=== PATIENT | female | born 1950 | race Caucasian/White ===

== ENCOUNTER 2021-10-31 01:23 | Inpatient (IN) | payer MEDICARE ==
[~2021-10-31] VITALS: Ht 160 cm; Wt 107.8 kg
[2021-10-31 01:56] LABS: BASOPHILS ABSOLUTE AUTO 0.07 K/mm3 (0.00-0.23); BASOPHILS PERCENT AUTO 1 % (0-2); EOSINOPHILS ABSOLUTE AUTO 0.15 K/mm3 (0.00-0.68); EOSINOPHILS PERCENT AUTO 1 % (0-6); Hematocrit 39.7 % (33.0-51.0); Hemoglobin 13.4 g/dL (11.5-16.0); IMMATURE GRAN ABSOLUTE AUTO 0.06 K/mm3 (0.00-0.10); IMMATURE GRAN PERCENT AUTO 1 % (0-1); LYMPHOCYTES ABSOLUTE AUTO 2.09 K/mm3 (0.84-5.20); LYMPHOCYTES PERCENT AUTO 17 % (21-46); MONOCYTES ABSOLUTE AUTO 0.59 K/mm3 (0.16-1.47); MONOCYTES PERCENT AUTO 5 % (4-13); Mean Corpuscular HGB 28.9 pg (26.0-34.0); Mean Corpuscular HGB Conc 33.8 g/dL (31.5-36.5); Mean Corpuscular Volume 86 fL (80-100); NEUTROPHILS ABSOLUTE AUTO 9.25 K/mm3 (1.96-9.15); NEUTROPHILS PERCENT AUTO 76 % (41-73); Platelet Count 278 K/mm3 (150-400); RDW Coefficient Variation 12.1 % (11.7-14.2); RDW Standard Deviation 37.5 fL (35.1-46.3); Red Blood Cell Count 4.63 M/mm3 (3.80-5.20); White Blood Cell Count 12.21 K/mm3 (4.00-11.30)
[2021-10-31 02:05] LABS: Alanine Aminotransfer (ALT/SGP 20 U/L (12-78); Albumin, Blood 3.4 g/dL (3.4-5.0); Albumin/Globulin Ratio 0.7 (0.8-1.8); Alk Phos 166 U/L (50-136); Anion Gap 9 mmol/L (6-16); Aspartate Aminotrans (AST/SGOT 19 U/L (12-37); Bilirubin, Total 0.2 mg/dL (0.1-1.0); Blood Urea Nitrogen 34 mg/dL (8-24); Bun/Creatinine Ratio 19.1 (12.0-20.0); CHOL/HDL RATIO 5.8; CO2, Blood 24 mmol/L (21-32); Calcium, Blood 9.4 mg/dL (8.5-10.1); Chloride, Blood 106 mmol/L (98-108); Cholesterol 289 mg/dL (50-200); Creatinine, Blood 1.78 mg/dL (0.40-1.00); Globulin, Blood 4.6 g/dL (2.2-4.0); Glomerular Filtration Rate 30 (60-); Glucose, Blood 166 mg/dL (70-99); HDL Cholesterol 50 mg/dL (>39); LDL/HDL RATIO 3.8; Low Density Lipoprotein Chol 189 mg/dL (0-110); Magnesium, Blood 2.1 mg/dL (1.6-2.4); Potassium, Blood 3.8 mmol/L (3.5-5.5); Sodium, Blood 139 mmol/L (136-145); Triglycerides 252 mg/dL (30-160); Very Low Density Lipoprot Chol 50 mg/dL (6-32)
[2021-10-31 03:01] LABS: International Normalized Ratio 1.03; Prothrombin Time Results 10.8 Sec (9.7-11.5)
[2021-10-31] MEDS ORDERED: OMEP20ER PO (04:28)
[2021-10-31] MEDS ORDERED: METOPROLOL TART25 MG PO (04:28)
[2021-10-31] MEDS ORDERED: FUROSEMIDE20 MG PO (04:29)
[2021-10-31] MEDS ORDERED: TRAM50 PO (04:32)
[2021-10-31 05:20] LABS: BASOPHILS ABSOLUTE AUTO 0.06 K/mm3 (0.00-0.23); BASOPHILS PERCENT AUTO 0 % (0-2); EOSINOPHILS ABSOLUTE AUTO 0.02 K/mm3 (0.00-0.68); EOSINOPHILS PERCENT AUTO 0 % (0-6); Hematocrit 35.1 % (33.0-51.0); Hemoglobin 11.9 g/dL (11.5-16.0); IMMATURE GRAN ABSOLUTE AUTO 0.08 K/mm3 (0.00-0.10); IMMATURE GRAN PERCENT AUTO 1 % (0-1); LYMPHOCYTES ABSOLUTE AUTO 1.06 K/mm3 (0.84-5.20); LYMPHOCYTES PERCENT AUTO 7 % (21-46); MONOCYTES ABSOLUTE AUTO 0.47 K/mm3 (0.16-1.47); MONOCYTES PERCENT AUTO 3 % (4-13); Mean Corpuscular HGB 28.8 pg (26.0-34.0); Mean Corpuscular HGB Conc 33.9 g/dL (31.5-36.5); Mean Corpuscular Volume 85 fL (80-100); Mean Platelet Volume 10.1 fL (9.1-12.4); NEUTROPHILS ABSOLUTE AUTO 12.74 K/mm3 (1.96-9.15); NEUTROPHILS PERCENT AUTO 88 % (41-73); Platelet Count 266 K/mm3 (150-400); RDW Coefficient Variation 12.2 % (11.7-14.2); RDW Standard Deviation 37.6 fL (35.1-46.3); Red Blood Cell Count 4.13 M/mm3 (3.80-5.20); White Blood Cell Count 14.43 K/mm3 (4.00-11.30)
[2021-10-31 05:38] LABS: Bun/Creatinine Ratio 19.5 (12.0-20.0); Calcium, Blood 8.9 mg/dL (8.5-10.1); Creatinine, Blood 1.69 mg/dL (0.40-1.00)
--- NOTE | 2021-10-31 06:22 | NUR ---
PATIENT TO ROOM FROM [facility], ALERT AND ORIENTED X4. 02 SATS >95% ON RA, DENIES SOB. HR SR AT 80s-90s, BP HYPERTENSIVE, MEDICATED PER EMAR. CP 5/10, MEDICATED PER EMAR. EKG DONE THIS AM. RIGHT RADIAL SITE WNL, TR BAND IN PLACE WITH ARM BOARD. NO HEMATOMA, SENSATION INTACT. CONTINENT OF BOWEL AND BLADDER. MINIMAL ASSISTANCE WITH REPOSITIONING. CALL LIGHT IN REACH, SEE ASSESSMENT FOR MORE INFORMATION. DAUGHTER CURRENTLY AT BEDSIDE AND TAKING MONEY/BELONGING HOME WITH HER.
--- NOTE | 2021-10-31 07:18 | NUR ---
PATIENT BECAME BRADYCARDIC AND THEN ASYSTOLE, LESS THAN A MINUTE OF CHEST COMPRESSIONS DONE AND PATIENT PATIENT BECAME ST. CALLED DAUGHTER CHIDI AND NOTIFIED HER OF EVENT, SHE WILL BE COMING BACK TO THE HOSPITAL.
[2021-10-31 08:09] LABS: Calcium, Blood 8.5 mg/dL (8.5-10.1); Creatinine, Blood 1.57 mg/dL (0.40-1.00); Magnesium, Blood 2.2 mg/dL (1.6-2.4); Potassium, Blood 4.3 mmol/L (3.5-5.5)
--- NOTE | 2021-10-31 08:27 | NUR ---
0715: SBAR from Cristina CEBALLOS. Immediately following bedside report in which pt reportd 3/10 chest pain w/ no AMS and VSS, pt had episode of bradycardia then asystole with AMS and respiratory arrest. Less than 1 min chest compressions, code blue called, pads placed; pt had spontaneous ROSC to sinus tach. EKG performed. Dr. Moses from ED and Dr. Lam at bedside following event. Pt VSS, CP 5/10. Dr. Brown notified of event by telephone. 0800: Called Dr. Brown to notify of status and stated concern that event may reoccur; requested consideration for pacemaker. No change to plan of care at this time other than to administer 25mcg of fentanyl when due and give tylenol. 0815: Discussed plan with Dr. Lam and recommended she consult with Dr. Brown regarding plan of care. Pt remains in room, AAOx4, w/ CP 5/10 and unchanged with stable VSS. Held lopressor, lovenox, and humalog; Dr. Lam aware.
--- NOTE | 2021-10-31 08:45 | NUR ---
0840: PT REPORTS INCREASE IN CHEST PAIN. DR. GONZALES AT BEDSIDE FOR CP 10/23, L CHEST INFERIOR TO RIBS, NONRADIATING. NO INCREASE IN SOB OR N/V OR VS CHANGES.
--- NOTE | 2021-10-31 10:33 | NUR ---
PT RESTING IN ROOM. R RADIAL PULSE 2+ WITH NO S/S OF BLEEDING OR HEMATOMA S/P REMOVAL OF TR BAND. TRANSPARENT DRESSING APPLIED. TEMPERATURE CONTINUES TO NORMALIZE. NO SIGNIFICANT ECTOPY NOTED. PATIENT STATES CHEST PAIN HAS DECREASED TO 3/10 S/P GI COCKTAIL. STATES IMPROVEMENT IN OVERALL BODY ACHES. BP CUFF IS ON L WRIST; PLACING AT PHLEBOSTATIC AXIS LEVEL TO FACILITATE ACCURATE BP MEASUREMENTS.
--- NOTE | 2021-10-31 12:09 | NUR ---
1200: DR DAVEY AT BEDSIDE TO ASSESS PATIENT. VSS, PAIN 3/10 CP AND UNCHANGED PER PT. DR. DAVEY RECOMMENDS OOBTC AND AMBULATION WITHIN ROOM. HE STATES HE WILL REVIEW ACTIVE ORDERS AND DISCONTINUE TX NEEDED. PT OOBTC FOR LUNCH, TOLERATED WELL WITH MINOR LIGHTHEADEDNESS THAT RESOLVED. VSS. CALL LIGHT IN REACH. LINENS CHANGED.
--- NOTE | 2021-10-31 14:56 | NUR ---
PT TOLERATED BEING IN CARDIAC CHAIR FOR UP TO 90 MIN BEFORE REQUESTING TO RETURN TO HOSPITAL BED. SHE HAD ONE BOUT OF NAUSEA AND VOMITING WHILE IN CHAIR, AFTER ATTEMPTING TO EAT SOME LUNCH; NAUSEA IMPROVED AND SHE DECLINED PHARMACOLOGICAL INTERVENTION. VSS, NO INCREASE IN CHEST PAIN. PT TOLERATED JELLO AT 1430, WILL ADVANCE DIET SLOWLY TOLERATED.
--- NOTE | 2021-10-31 16:11 | NUR ---
SHIFT SUMMARY NEURO: PT REC'D TYLENOL X 2 FOR PAIN INCLUDING BODY ACHES, HEADACHE, AND DULL CHEST PAIN. ONE EPISODE OF AMS THIS AM WITH CODE BLUE EVENT. RESP: CONTINUES ON RA. CARDIAC: EPISODE OF BRADYCARDIA & ASYSTOLE THIS AM REQUIRING <1MIN CPR W/ SPONT ROSC. ATROPINE AND EPI AT BEDSIDE, PACING PADS REMAIN IN PLACE. EKGS IN CHART. SR W/ OCCASIONAL UNIFOCAL PVCS. ADDED LISINOPRIL, HAS NOT REQ'D ADDITIONAL BP INTERVENTION. HELD METOPROLOL DUE TO BRADYCARDIA. MD ATTRIBUTED EVENT POSSIBLY TO VAGAL RESPONSE. CN ATTEMPTED PLACEMENT OF MIDLINE WITHOUT SUCCESS. GI: ONE EPISODE OF EMESIS AFTER EATING A BITE OF NOODLES; TOLERATED JELLO AND ORAL FLUIDS. : URGENT INCONTINENCE WHEN VOMITING OR COUGHING. UP TO COMMODE. MK: OOBTC X 90 MIN, UP TO COMMODE X 2. INTEG: DECLINED FULL BED BATH. REMOVED TR BAND AT 0800 , DRESSING PLACED, R ARM ALERT X 24 HRS S/P TR BAND. PSYCH: MULTIPLE FAMILY MEMBERS PRESENT DURING THE DAY, VERY PLEASANT.
--- NOTE | 2021-10-31 20:54 | NUR ---
ASSUMED CARE AT 1900 PATIENT IS ALERT AND ORIENTED X4. 02 SATS 100% ON RA, DENIES SOB. HR SR 70s, BP STABLE. REPORTS 3/10 CP, STATES IT IS IMRPOVING. UP TO TOILET WITH 1 PERSON ASSIST. REPOSITIONS SELF IN BED. CALL LIGHT IN REACH, SEE SHIFT ASSESSMENT FOR MORE INFORMATION.
--- NOTE | 2021-11-01 06:22 | NUR ---
SHIFT SUMMARY PATIENT REMAINS ALERT AND ORIENTED X4. 02 SATS >95% ON RA, DENIES SOB. HR SR 80s. BP STABLE. DENIES CP/PRESSURE. DOES STATE SHE IS HAVING PAIN ON THE LEFT SIDE OF HER FACE DOWN HER NECK "LIKE WHEN SHES HAD AN EAR INFECTION", MEDICATED PER EMAR. UP TO TOILET, NO BM THIS SHIFT. DENIES DESMOND N/V OR ABDOMINAL PAIN.
[2021-11-01 09:02] LABS: Hematocrit 41.8 % (33.0-51.0); Mean Corpuscular HGB 28.8 pg (26.0-34.0); Mean Corpuscular HGB Conc 31.1 g/dL (31.5-36.5); Mean Platelet Volume 10.4 fL (9.1-12.4); Platelet Count 271 K/mm3 (150-400); RDW Coefficient Variation 13.1 % (11.7-14.2); Red Blood Cell Count 4.51 M/mm3 (3.80-5.20); White Blood Cell Count 11.31 K/mm3 (4.00-11.30)
[2021-11-01 09:11] LABS: Mean Corpuscular Volume 93 fL (80-100)
[2021-11-01 09:13] LABS: Albumin, Blood 3.1 g/dL (3.4-5.0); Anion Gap 9 mmol/L (6-16); Blood Urea Nitrogen 29 mg/dL (8-24); Bun/Creatinine Ratio 16.8 (12.0-20.0); CO2, Blood 21 mmol/L (21-32); Calcium, Blood 8.8 mg/dL (8.5-10.1); Chloride, Blood 110 mmol/L (98-108); Creatinine, Blood 1.73 mg/dL (0.40-1.00); Glomerular Filtration Rate 31 (60-); Glucose, Blood 164 mg/dL (70-99); Phosphorus, Blood 2.6 mg/dL (2.5-4.9); Potassium, Blood 4.1 mmol/L (3.5-5.5); Sodium, Blood 140 mmol/L (136-145)
--- NOTE | 2021-11-01 09:51 | NUR ---
0700: SBAR FROM DARIANA CEBALLOS. PT VSS, HYPERTENSIVE, SITTING IN CHAIR, STATES PRIMARY CONCERN IS L JAW PAIN AND SHE WOULD LIKE PROVIDER TO REVIEW IT TODAY. PAIN OCCURS WITH SWALLOW/PALPATION. PT AMBULATED WITHIN ROOM X 2 MIN W/ GOOD TOLERANCE. PT ASSISTED TO TOILET X 2. VSS. DR. ELIZALDE AT BEDSIDE AT 0950. NOTIFIED HER OF PT PAIN TO L JAW.
--- NOTE | 2021-11-01 12:10 | NUR ---
DR. DAVEY AT BEDSIDE. LEFT MESSAGE FOR DR. ELIZALDE TO PROVIDE UPDATE ON PLAN OF CARE.
--- NOTE | 2021-11-01 12:23 | NUR ---
1223: NOTIFIED DR. DAVEY BY TELEPHONE OF POTENTIAL EKG CHANGES FOR REVIEW.
--- NOTE | 2021-11-01 14:10 | NUR ---
DR. ELIZALDE APPROVED DISCONTINUE OF AC/HS BGL CHECKS WITH ASSOCIATED SLIDING SCALE
--- NOTE | 2021-11-01 16:05 | NUR ---
1500: LUE IV no longer patent. Assessing for potential IV site. Unsuccessful x2 attempts to RUE. KYLE Gil at bedside at 1530 to assess for midline catheter. 1530: Pt states she feels like her "tummy is swelling." BS active x 4 quadrants. Abdomen soft, nondistended, no guarding or rebound tenderness; minimal generalized tenderness to deep palpation. Further evaluation and pt states she feels like the "pressure is moving up [into upper abdomen]...like when I went in [to the ED during cardiac event]." Pressure rated at 4/10. EKG performed, VSS. 1600: Dr. Sellers notified of EKG. Possible changes to EKG include increased T-wave abnormality and QTc prolongation per printout. Dr. Brown notified and he compared new EKG to one this AM and states it looks improved compared to this AM. He recommended acetaminophen for discomfort.
--- NOTE | 2021-11-01 16:40 | NUR ---
SHIFT SUMMARY NEURO: NO ACUTE ISSUES. CHRONIC JOINT/BACK PAIN CONTROLLED BY SITTING IN CHAIR MOST OF DAY AND AMBULATION, BED INCREASES HER BACK PAIN. CARDIAC: SR W/ OCCASIONAL UNIFOCAL PAC'S WITH QTC PROLONGATION AND T-WAVE ABNORMALITY WITH ST ELEVATION IN V2/V3, DR. DAVEY AWARE. RESTARTING LOPRESSOR AT 1800. IVF 150ML/HR X 1L FOR RENAL FUNCTION. PLAN FOR MONITORING OF ANY EPISODES OF BRADYCARDIA. VERBAL APPROVAL REC'D FROM DR. DOVER TO HOLD BLOOD GLUCOSE CHECKS AND HUMALOG UNTIL FURTHER NOTICE. EKG CHANGES THIS AM WERE DISCUSSED WITH DR. DAVEY WHO STATES HE WANTS OBSERVATION OF PATIENT OVERNIGHT. MIDLINE CATHETER PLACED DUE TO INFILTRATION OF IV TO LUE AND DIFFICULT ACCESS. RESP: NO CHANGES. GI: POSITIVE FOR STREP THROAT TODAY; ABX STARTED. TOLERATED LUNCH. NOW WITH ABDOMINAL DISCOMFORT 4 HRS LATER, PT STATES SHE WILL HAVE CLEAR FLUIDS THIS EVENING. NO N/V/D. LAST BM 10/30. : ASSISTED TO TOILED X 4 DURING SHIFT FOR URINATION. RENAL FUNCTION PANEL SHOWED SOME DETERIORATION THIS AM AND TO BE RE-CHECKED TOMORROW. INTEG: NO CHANGES. DRESSING TO R RADIAL S/P TR BAND ON 10/31.
--- NOTE | 2021-11-01 19:10 | NUR ---
ASSUMED CARE OF PT AT THIS TIME. PT IS ALERT AND ORIENTED AND UP TO TOILET WITH [employer] ELECTRICAL DESIGNER ASSISTANCE FOR LINE MANAGEMENT, GAIT STEADY, PT DENIES FURTHER NEEDS AT THIS TIME. WILL MONITOR.
--- NOTE | 2021-11-02 05:19 | NUR ---
PT REMAINS ALERT AND ORIENTED THROUGHOUT NOC, REPORTS DIFFICULTY SLEEPING DUE TO DISCOMFORT IN A BED NOT HER OWN. SHE HAS STATED THAT SHE IS LOOKING FORWARD TO DISCHARGE TO HOME TODAY. RIGHT WRIST MOVEMENT RESTRICTIONS HAVE BEEN DISCUSSED WITH EACH TIME PT WAS UP OOB TO TOILET THIS SHIFT, MOVEMENT RESTRICTIONS CONTINUE TO NEED TO BE REINFORCED, DID DISCUSS WITH PT THAT RISKS OF NONCOMPLIANCE WITH MOVEMENT RESTRICTIONS INCLUDE BLEEDING FROM SITE, LARGE HEMATOMA FORMATION, POSSIBLE LOSS OF CIRCULATION TO ARM/HAND DUE TO BLEEDING WITHIN ARM. SHE CONTINUES IN SINUS RHYTHM, PRESSURES MAINTAINING STABLE THROUGHOUT SHIFT, DENIES CP/PRESSURE THROUGHOUT NOC. SATS REMAIN HIGH 90S ON ROOM AIR, PT DENIES SOB/DYSPNEA. BOWEL MOVEMENT X 2 THIS SHIFT. CONTINUES SBA TO TOILET FOR LINE MANAGEMENT AND SAFETY. WILL CONT TO MONITOR AND REPORT OFF TO NEXT SHIFT.
--- NOTE | 2021-11-02 08:39 | NUR ---
AM NOTE... ASSUMED CARE OF PT AT 0700 THE PT IS A&Ox4 THE PT WAS ADMITTED FOR A STEMI AND IS S/P ANGIO W/ STENT TO THE LAD. THE PT DENIES ANY CHEST PAIN/PRESSURE N/V OR SOB. THE PT IS IN SR IN THE 80'S BP IS STABLE. NO EDEMA NOTED ON ASSESSMENT. THE PT IS ON RA WITH O2 SATS >90% L/S CLEAR T/O. THE PT IS C/O OF UPPER ABD/GASTRIC PAIN SHE STATED THIS IMPROVED WHEN SHE WAS GIVEN A GI COCKTAIL YESTERDAY. THE PT IS IND TO SBA IN THE ROOM AND UP IN THE CHAIR FOR THIS ASSESSMENT. VS STABLE AT THIS TIME THE PT'S RIGHT WRIST SITE IS STABLE. WILL CONTINUE TO MONITOR.
[2021-11-02 11:43] LABS: Bun/Creatinine Ratio 14.7 (12.0-20.0); Calcium, Blood 8.7 mg/dL (8.5-10.1); Creatinine, Blood 1.7 mg/dL (0.40-1.00); Potassium, Blood 4.4 mmol/L (3.5-5.5)
[2021-11-02] MEDS ORDERED: ASPI81CH PO (13:04)
[2021-11-02] MEDS ORDERED: CLOP75 PO (13:05)
[2021-11-02] MEDS ORDERED: Prinivil10 MG PO (13:06)
[2021-11-02] MEDS ORDERED: PENVK500 PO (13:09)
[2021-11-02] MEDS ORDERED: VISBIOME 112.51 EACH PO (13:10)
[2021-11-02] MEDS ORDERED: NITR.4SL SL (13:11)
[2021-11-02] MEDS ORDERED: METO25ER PO (13:12)
[2021-11-02] MEDS ORDERED: PANT40 PO (13:13)
[2021-11-02] MEDS ORDERED: JARDIANCE25 MG PO (13:15)
[2021-11-02] MEDS ORDERED: LISI20 PO (13:15)
--- NOTE | 2021-11-02 13:41 | NUR ---
PT D/C HOME.... PT IS TO D/C HOME WITH CARDIOLOGY FOLLOW UP WITH IN 1 WEEK, THE PT IS ALSO TO D/C HOME WITH A ZIO PATCH IN PLACE. THE PT'S D/C EDUCATION AND NEW MEDICATION INFORMATION WAS PROVIDED TO THE PT WRITTEN AND VERBALLY, BOT THE PT AND HER DAUGHTER WHO WAS PRESENT VERBALIZED THEIR UNDERSTANDING. THE PT'S IV AND POWERGLIDE WERE REMOVED WNL. ALL OF PT'S BELONGINGS WERE PACKED AND SENT WITH THE PT. THE PT'S NEW MEDICATIONS WERE FAXED TO THE PT'S PHARMACY OF CHOICE.
--- NOTE | 2021-11-03 13:29 | NUR ---
Spoke with Dr Majano about the medication Jardiance for this patient Shauna Sanders. She called today 11/03/21 one day post her being discharged from [facility] on 11/02/21. She stated the medication was to expensive to get. Dr Majano stated to RN, Xavi that she will be ok to not get the medication till she follows up with the primary doctor. The medication will not affect her cardiac condition acutely if she does not get it for a short period of time. Yousuf Couch RN spoke with daughter Jaqueline and informed her of this information and the reminder that her mother Shauna is following up with the [facility] in one week and that she should discuss this medication with them to find out if there is other options of medications for Shauna to take.
== END 2021-11-02 14:20 | disposition home or self-care (01) | DRG 247 ==
LOC: ER 01:23 → ICUW 02:00 → ER 02:00 → ICUW 02:50
PROVIDERS: Family Medicine; Internal Medicine; Student in an Organized Health Care Education/Training Program; ADMIT Internal Medicine Interventional Cardiology
PROC: 027034Z Dilation of Coronary Artery, One Artery with Drug-eluting Intraluminal Device, Percutaneous Approach (ICD-10-PCS; principal; 2021-10-31)
PROC: 02C03ZZ Extirpation of Matter from Coronary Artery, One Artery, Percutaneous Approach (ICD-10-PCS; 2021-10-31)
PROC: B2111ZZ Fluoroscopy of Multiple Coronary Arteries using Low Osmolar Contrast (ICD-10-PCS; 2021-10-31)
PROC: 4A023N7 Measurement of Cardiac Sampling and Pressure, Left Heart, Percutaneous Approach (ICD-10-PCS; 2021-10-31)
DX: I21.02 ST elevation (STEMI) myocardial infarction involving left anterior descending coronary artery (principal); I12.9 Hypertensive chronic kidney disease with stage 1 through stage 4 chronic kidney disease, or unspecified chronic kidney disease; N18.30 Chronic kidney disease, stage 3 unspecified; J02.0 Streptococcal pharyngitis; I25.10 Atherosclerotic heart disease of native coronary artery without angina pectoris; D72.829 Elevated white blood cell count, unspecified; E11.65 Type 2 diabetes mellitus with hyperglycemia; I44.1 Atrioventricular block, second degree; E11.22 Type 2 diabetes mellitus with diabetic chronic kidney disease; E78.5 Hyperlipidemia, unspecified; K21.9 Gastro-esophageal reflux disease without esophagitis; B95.0 Streptococcus, group A, as the cause of diseases classified elsewhere; D63.1 Anemia in chronic kidney disease; Z87.891 Personal history of nicotine dependence; Z85.3 Personal history of malignant neoplasm of breast; Z92.3 Personal history of irradiation; Z92.21 Personal history of antineoplastic chemotherapy; Z90.10 Acquired absence of unspecified breast and nipple; Z88.6 Allergy status to analgesic agent; Z88.8 Allergy status to other drugs, medicaments and biological substances; Z79.899 Other long term (current) drug therapy
CPT/HCPCS: 36415; 37197; 71045; 76937; 80048; 80053; 80061; 80069; 82947; 83036; 83735; 84100; 84484; 85025; 85027; 85347; 85610; 85730; 86850; 86900; 86901; 87430; 92950; 93005; 93010; 93246; 93306; 93458; 96374-59; 96375-59; 99152; 99153; 99285-25; A9270; C1725; C1751; C1757; C1769; C1874; C1887; C1894; C9113; C9606; J0153; J0360; J0461; J1644; J1650; J2250; J2270; J2405; J3010; J7030; J7040; Q9967

== ENCOUNTER 2021-11-06 10:38 | Inpatient (IN) | payer MEDICARE ==
[~2021-11-06] VITALS: Ht 160 cm; Wt 105.5 kg
[~2021-11-06 10:38] MED LIST: ASPI81CH PO; CLOP75 PO; FUROSEMIDE20 MG PO; JARDIANCE25 MG PO; LISI20 PO; METO25ER PO; METOPROLOL TART25 MG PO; NITR.4SL SL; OMEP20ER PO; PANT40 PO; PENVK500 PO; Prinivil10 MG PO; TRAM50 PO; VISBIOME 112.51 EACH PO
[2021-11-06 11:46] LABS: BASOPHILS ABSOLUTE AUTO 0.07 K/mm3 (0.00-0.23); BASOPHILS PERCENT AUTO 0 % (0-2); EOSINOPHILS ABSOLUTE AUTO 0.16 K/mm3 (0.00-0.68); EOSINOPHILS PERCENT AUTO 1 % (0-6); Hematocrit 36.6 % (33.0-51.0); Hemoglobin 12.3 g/dL (11.5-16.0); IMMATURE GRAN ABSOLUTE AUTO 0.07 K/mm3 (0.00-0.10); IMMATURE GRAN PERCENT AUTO 0 % (0-1); LYMPHOCYTES ABSOLUTE AUTO 2.07 K/mm3 (0.84-5.20); LYMPHOCYTES PERCENT AUTO 13 % (21-46); MONOCYTES ABSOLUTE AUTO 1.28 K/mm3 (0.16-1.47); MONOCYTES PERCENT AUTO 8 % (4-13); Mean Corpuscular HGB 28.9 pg (26.0-34.0); Mean Corpuscular HGB Conc 33.6 g/dL (31.5-36.5); Mean Corpuscular Volume 86 fL (80-100); Mean Platelet Volume 10.6 fL (9.1-12.4); NEUTROPHILS PERCENT AUTO 77 % (41-73); Platelet Count 383 K/mm3 (150-400); RDW Coefficient Variation 12.5 % (11.7-14.2); RDW Standard Deviation 39.2 fL (35.1-46.3); Red Blood Cell Count 4.25 M/mm3 (3.80-5.20); White Blood Cell Count 15.75 K/mm3 (4.00-11.30)
[2021-11-06 12:05] LABS: Albumin, Blood 3.2 g/dL (3.4-5.0); Albumin/Globulin Ratio 0.7 (0.8-1.8); Bilirubin, Total 0.4 mg/dL (0.1-1.0); Calcium, Blood 9.7 mg/dL (8.5-10.1); Creatinine, Blood 2.47 mg/dL (0.40-1.00); Globulin, Blood 4.7 g/dL (2.2-4.0); Potassium, Blood 5.2 mmol/L (3.5-5.5); Total Protein, Blood 7.9 g/dL (6.4-8.2)
[2021-11-06] MEDS ORDERED: EZETIMIBE10 M6 PO (15:27)
--- NOTE | 2021-11-06 18:10 | NUR ---
PATIENT UP TO MEDICAL FROM ER THIS EVENING. SHE IS NPO. IV IS IN LEFT HAND. NS IS COMPLETE AT THIS TIME. PATIENT HAS HISTORY OF PANCREATITS AND THOUGHT MAYBE THIS WAS. CT FOUND DIVERTICULITIS AND PATIENT HAS ABDOMINAL PAIN. THE PAIN DECREASED FLUID WAS ADMINISTERED, BUT PATIENT FEELS IT COMING BACK. GFR IS 20. PATIENT HAD BEEN SEEING A DIRECTOR TRADING IN [place] WHO STATED THAT HER KIDNEYS ARE "LEAKING". SHE ALSO HAS BEEN SEEING DR. ROBBY RESENDIZ AN INTERNALIST HER PRIMARY. PHONE NUMBER [phone]. WBC 15.75, A &OX 4. SHE IS ON ROOM AIR. A URINE SPECIMEN SHOULD BE COLLECTED FOR CULTURE. HISTORY OF BREAST CANCER X 2. CURRENTLY ON PCN FOR STREP THROAT THAT STARTED LAST TUESDAY. THROAT IS STILL SORE, UP TO LEFT EAR. SWALLING AND TURNING HEAD ARE PAINFUL. RECENT STENT PLACED WHILE AT [facility] LAST WEEK. HISTORY OF UTERINE CANCER. HISTORY HTN AND HYPERLIPIDEMA
[2021-11-06 19:31] LABS: Source, Urine Clean Catch
[2021-11-06 19:37] LABS: Bilirubin, Urine Neg (Neg); Blood, Urine 1+ (Neg); Color, Urine Yellow (P-Yellow); Glucose Qualitative, Urine Neg (Neg); Ketones, Urine Neg (Neg); Leukocyte Esterase, Urine Neg (Neg); Nitrite, Urine Neg (Neg); Protein, Urine 2+ (Neg); Specific Gravity, Urine 1.015 (1.003-1.022); Urobilinogen, Urine NORM (Normal)
[2021-11-06 19:52] LABS: Appearance, Urine Hazy (Clear)
[2021-11-06 19:57] LABS: Bacteria Mod /hpf; Red Blood Cells, Urine 0-2 /hpf (0-2); Squamous Epithelial Cells Few /hpf (Few); White Blood Cells, Urine 0-2 /hpf (0-5)
[2021-11-06 19:58] LABS: Mucus Light (0-Heavy); Transitional Epithelial Cells Rare /hpf (0-Rare)
--- NOTE | 2021-11-07 00:57 | NUR ---
PATIENT DRANK APPROXIMATELY 4-5 OZ OF SPRITE AFTER ORDER TO COMMENCE CLEAR LIQUID DIET AND BECAME NAUSEATED, ZOFRAN GIVEN PRE ORDER WITH GOOD RELIEF. PATIENT THEN DECIDED TO REMAIN ON ICE CHIPS OVERNIGHT. HETAL SORTO CLOSE MONITORING
[2021-11-07 05:36] LABS: BASOPHILS ABSOLUTE AUTO 0.08 K/mm3 (0.00-0.23); BASOPHILS PERCENT AUTO 1 % (0-2); EOSINOPHILS ABSOLUTE AUTO 0.17 K/mm3 (0.00-0.68); EOSINOPHILS PERCENT AUTO 1 % (0-6); Hematocrit 36.2 % (33.0-51.0); IMMATURE GRAN ABSOLUTE AUTO 0.09 K/mm3 (0.00-0.10); IMMATURE GRAN PERCENT AUTO 1 % (0-1); LYMPHOCYTES ABSOLUTE AUTO 1.67 K/mm3 (0.84-5.20); LYMPHOCYTES PERCENT AUTO 13 % (21-46); MONOCYTES ABSOLUTE AUTO 1.14 K/mm3 (0.16-1.47); MONOCYTES PERCENT AUTO 9 % (4-13); Mean Corpuscular HGB 29.3 pg (26.0-34.0); Mean Corpuscular HGB Conc 33.1 g/dL (31.5-36.5); Mean Corpuscular Volume 89 fL (80-100); Mean Platelet Volume 10.4 fL (9.1-12.4); NEUTROPHILS ABSOLUTE AUTO 9.72 K/mm3 (1.96-9.15); NEUTROPHILS PERCENT AUTO 76 % (41-73); Platelet Count 326 K/mm3 (150-400); RDW Coefficient Variation 12.5 % (11.7-14.2); RDW Standard Deviation 40.9 fL (35.1-46.3); Red Blood Cell Count 4.09 M/mm3 (3.80-5.20); White Blood Cell Count 12.87 K/mm3 (4.00-11.30)
[2021-11-07 06:12] LABS: Albumin, Blood 2.9 g/dL (3.4-5.0); Albumin/Globulin Ratio 0.6 (0.8-1.8); Bilirubin, Total 0.6 mg/dL (0.1-1.0); Bun/Creatinine Ratio 17.8 (12.0-20.0); Calcium, Blood 9.4 mg/dL (8.5-10.1); Creatinine, Blood 2.47 mg/dL (0.40-1.00); Globulin, Blood 4.5 g/dL (2.2-4.0); Magnesium, Blood 2.3 mg/dL (1.6-2.4); Total Protein, Blood 7.4 g/dL (6.4-8.2)
--- NOTE | 2021-11-07 06:30 | NUR ---
PATIENT SLEPT MOST OF THE NIGHT OTHER THAN THE TIME SHE WAS NAUSEATED (SEE NURSES NOTES), AND WHEN SHE WOKE IN PAIN CLOSE TO THE END OF THE SHIFT. ORDER OBTAINED FROM NIGHT HOSPITALIST FOR FENTANYL WHICH MADE HER ABLE TO BE COMFORTABLE AND GO BACK TO SLEEP. A&OX4, INDEPENDENT IN ROOM. ABD CONTINUES TO BE TENDER ESPECIALLY WITH GENTLE PALPATION.
--- NOTE | 2021-11-07 14:29 | NUR ---
PATIENT WAS ADVANCED TO SOFT DIET. SHE TOLERATED WELL- 30%. SHE STATES NO PAIN. NO NAUSEA. SHE DID SAY THAT HER STOMACH FEELS LIKE IT STARTED TO BLOAT A LITTLE. ONE ODD THING, IS THAT SINCE SHE FIRST BECAME ILL, A WEEK AGO, FOOD/BEVERAGE HAS A TASTE OF GAS TO HER.
--- NOTE | 2021-11-07 17:33 | NUR ---
PATIENT HAD AN EPISODE OF BLOATING THIS AFTERNOON, JUST SLIGHT BLOATING EPIGASTRIC AREA. AFTER HER PRILOSEC WAS ADMINISTERED, THIS SENSATION RESOLVED. SHE IS FEELING A LITTLE HUNGARY NOW, AND IS WAITING TO EAT DINNER (WITH CAUTION). SHE IS JOKING AND SMILING WITH STAFF-SPIRITS ARE GOOD!
--- NOTE | 2021-11-07 18:09 | NUR ---
CHEM STICK/ BS HAVE BEEN DISCONTINUED. PATIENT IS TOLERATING FOOD. SHE IS NOT DIABETIC. DR. ALMENDAREZ APPROVED DC.
--- NOTE | 2021-11-07 22:36 | NUR ---
RN TO RN PATIENT TRANSFER. REPORT TAKEN FROM JACINTO CEBALLOS.
--- NOTE | 2021-11-08 04:41 | NUR ---
SHIFT SUMMARY PATIENT HAD NO ACUTE CHANGES. AXOX 3 AND INDEPENDENT IN ROOM. PIV REMAINS INTACT. VSS/AFEBRILE. DENIES CHEST PAIN, SOB, AND N/V. REPORTED ABDOMINAL PAIN AND IV FENTANYL 25 MCG GIVEN PER EMAR. CALL LIGHT IN REACH. BED IN LOWEST POSITION. WILL CONTINUE TO MONITOR UNTIL DAY SHIFT NURSE ASSUMES CARE.
[2021-11-08 05:32] LABS: BASOPHILS ABSOLUTE AUTO 0.06 K/mm3 (0.00-0.23); BASOPHILS PERCENT AUTO 1 % (0-2); EOSINOPHILS ABSOLUTE AUTO 0.18 K/mm3 (0.00-0.68); EOSINOPHILS PERCENT AUTO 2 % (0-6); Hematocrit 31.5 % (33.0-51.0); Hemoglobin 10.5 g/dL (11.5-16.0); IMMATURE GRAN ABSOLUTE AUTO 0.06 K/mm3 (0.00-0.10); IMMATURE GRAN PERCENT AUTO 1 % (0-1); LYMPHOCYTES ABSOLUTE AUTO 1.48 K/mm3 (0.84-5.20); LYMPHOCYTES PERCENT AUTO 15 % (21-46); MONOCYTES ABSOLUTE AUTO 0.78 K/mm3 (0.16-1.47); MONOCYTES PERCENT AUTO 8 % (4-13); Mean Corpuscular HGB Conc 33.3 g/dL (31.5-36.5); Mean Corpuscular Volume 87 fL (80-100); Mean Platelet Volume 10.4 fL (9.1-12.4); NEUTROPHILS PERCENT AUTO 75 % (41-73); Platelet Count 333 K/mm3 (150-400); RDW Coefficient Variation 12.4 % (11.7-14.2); RDW Standard Deviation 39.7 fL (35.1-46.3); Red Blood Cell Count 3.62 M/mm3 (3.80-5.20); White Blood Cell Count 10.16 K/mm3 (4.00-11.30)
[2021-11-08 07:05] LABS: Albumin, Blood 2.7 g/dL (3.4-5.0); Albumin/Globulin Ratio 0.6 (0.8-1.8); Bilirubin, Total 0.3 mg/dL (0.1-1.0); Calcium, Blood 9.2 mg/dL (8.5-10.1); Creatinine, Blood 2.33 mg/dL (0.40-1.00); Globulin, Blood 4.4 g/dL (2.2-4.0); Potassium, Blood 4.4 mmol/L (3.5-5.5); Total Protein, Blood 7.1 g/dL (6.4-8.2)
--- NOTE | 2021-11-08 18:21 | NUR ---
DISCHARGE SUMMARY PT AxOx4. PLEASANT AND COOPERATIVE WITH CARE. PT TOLERATING DIET WELL THIS SHIFT, LONG SHE IS EATING SMALLER PORTIONS. PT MEDICATED FOR UPSET STOMACH/NAUSEA x2 THIS SHIFT WITH REPORTED RELIEF. PT GIVEN DC INSTRUCTIONS INCLUDING DC MEDICATIONS, FOLLOW UP APPOINTMENTS AND PATIENT EDUCATION ON DIAGNOSES. PT VERBALIZES UNDERSTANDING. FAMILY IN ROOM FOR SUPPORT. PT DENIES ANY FURTHER QUESTIONS AT THIS TIME. SAFELY ESCORTED OUT VIA WC WITH FAMILY AND PENSIONHOLDER INFORMATION CLERK.
== END 2021-11-08 18:11 | disposition home or self-care (01) | DRG 439 ==
LOC: ER 10:38 → MEDS 15:33
PROVIDERS: Physician Assistant; ADMIT Internal Medicine
DX: K85.90 Acute pancreatitis without necrosis or infection, unspecified (principal); K57.92 Diverticulitis of intestine, part unspecified, without perforation or abscess without bleeding; I25.10 Atherosclerotic heart disease of native coronary artery without angina pectoris; I10 Essential (primary) hypertension; R77.8 Other specified abnormalities of plasma proteins; E78.5 Hyperlipidemia, unspecified; E11.9 Type 2 diabetes mellitus without complications; Z95.818 Presence of other cardiac implants and grafts; Z90.49 Acquired absence of other specified parts of digestive tract; Z88.8 Allergy status to other drugs, medicaments and biological substances; Z79.82 Long term (current) use of aspirin; Z79.811 Long term (current) use of aromatase inhibitors; Z79.2 Long term (current) use of antibiotics; Z79.899 Other long term (current) drug therapy; Z86.19 Personal history of other infectious and parasitic diseases
CPT/HCPCS: 36415; 74176; 80053; 81001; 82947; 83690; 83735; 84484; 85025; 85651; 86060; 87086; 93005; 93010; 99285-25; A9270; C9113; J1650; J2270; J2405; J3010; J7030

== ENCOUNTER 2024-08-26 09:09 | Inpatient (IN) | payer OTHER ==
[~2024-08-26] VITALS: Ht 160 cm; Wt 109.7 kg
[~2024-08-26 09:09] MED LIST changes: +EZETIMIBE10 M6 PO
[2024-08-26] MEDS ORDERED: Morphine Sulfate 4 MG/1 ML Injection IV ONE ×4 (09:50→13:15)
[2024-08-26 09:57] LABS: BASOPHILS ABSOLUTE AUTO 0.05 K/mm3 (0.00-0.23); BASOPHILS PERCENT AUTO 0 % (0-2); EOSINOPHILS ABSOLUTE AUTO 0.08 K/mm3 (0.00-0.68); EOSINOPHILS PERCENT AUTO 1 % (0-6); Hemoglobin 12.2 g/dL (11.5-16.0); IMMATURE GRAN ABSOLUTE AUTO 0.08 K/mm3 (0.00-0.10); IMMATURE GRAN PERCENT AUTO 1 % (0-1); LYMPHOCYTES ABSOLUTE AUTO 2.12 K/mm3 (0.84-5.20); LYMPHOCYTES PERCENT AUTO 14 % (21-46); MONOCYTES ABSOLUTE AUTO 1.23 K/mm3 (0.16-1.47); MONOCYTES PERCENT AUTO 8 % (4-13); Mean Corpuscular HGB 28.8 pg (26.0-34.0); Mean Corpuscular HGB Conc 33.9 g/dL (31.5-36.5); Mean Corpuscular Volume 85 fL (80-100); Mean Platelet Volume 10.8 fL (9.1-12.4); NEUTROPHILS ABSOLUTE AUTO 11.28 K/mm3 (1.96-9.15); NEUTROPHILS PERCENT AUTO 76 % (41-73); Platelet Count 329 K/mm3 (150-400); RDW Coefficient Variation 12.9 % (11.7-14.2); RDW Standard Deviation 39.6 fL (35.1-46.3); Red Blood Cell Count 4.24 M/mm3 (3.80-5.20); White Blood Cell Count 14.84 K/mm3 (4.00-11.30)
[2024-08-26 10:10] LABS: Albumin, Blood 3.3 g/dL (3.4-5.0); Albumin/Globulin Ratio 0.8 (0.8-1.8); Bilirubin, Total 0.4 mg/dL (0.1-1.0); Calcium, Blood 9.1 mg/dL (8.5-10.1); Creatinine, Blood 2.09 mg/dL (0.40-1.00); Globulin, Blood 3.9 g/dL (2.2-4.0); Potassium, Blood 4.4 mmol/L (3.5-5.5); Total Protein, Blood 7.2 g/dL (6.4-8.2)
[2024-08-26 10:18] LABS: Source, Urine Clean Catch
[2024-08-26 10:23] LABS: Appearance, Urine Hazy (Clear); Bilirubin, Urine Neg (Neg); Blood, Urine 3+ (Neg); Glucose Qualitative, Urine Neg (Neg); Ketones, Urine Neg (Neg); Leukocyte Esterase, Urine 2+ (Neg); Nitrite, Urine Neg (Neg); Protein, Urine 3+ (Neg); Specific Gravity, Urine 1.015 (1.003-1.022); Urobilinogen, Urine NORM (Normal)
[2024-08-26 10:27] LABS: Color, Urine Pale Yellow (P-Yellow)
[2024-08-26 10:40] LABS: Bacteria Mod /hpf; Renal Epithelial Few /hpf (0-Rare); Squamous Epithelial Cells Mod /hpf (Few); Transitional Epithelial Cells Mod /hpf (0-Rare)
[2024-08-26] MEDS ORDERED: CefTRIAXone Sodium 1,000 MG in NS 100 ML IV ONE (10:55)
[2024-08-26] MEDS ORDERED: NS 1,000 ML IV SCH (14:15)
--- NOTE | 2024-08-26 16:08 | NUR ---
RECEIVED REPORT FROM [facility] ED.
[2024-08-26] MEDS ORDERED: Ondansetron HCl 2 MG / ML 2ML Vial IV PRN ×2 (16:30→16:50)
[2024-08-26] MEDS ORDERED: AMLO5 PO (16:34)
[2024-08-26] MEDS ORDERED: LOSARTAN POTAS100 M1 PO (16:35)
[2024-08-26] MEDS ORDERED: VITAMIN B122500 MC1 PO (16:36)
[2024-08-26] MEDS ORDERED: CALCIUM-MAGNES1 EA11 PO (16:37)
[2024-08-26] MEDS ORDERED: VITAMIN D5000 UNIT PO (16:39)
[2024-08-26] MEDS ORDERED: VITAMIN D310 MC5 (16:39)
[2024-08-26 17:47] VITALS: BP 127/68
[2024-08-26] MEDS ORDERED: Morphine Sulfate 4 MG/1 ML Injection IV SCH (18:00)
[2024-08-26 19:15] VITALS: BP 131/53
--- NOTE | 2024-08-26 19:23 | NUR ---
SHIFT SUMMARY/TRANSFER 1620 PT ARRIVED TO ROOM AOX4, COOPERATIVE, ABLE TO MAKE NEED SKNOWN. BEDREST CURRENTLY DUE TO PAIN WHEN AMBULATING. PT DID ARRIVE FEELING VERY HOT AND PUKING FROM BEING HOT (THIS IS A COMMON OCCURENCE PT REPORTED). APPLIED COLD TOWELS, ICE WATER, FAN AT BEDSIDE. DAUGHTER IS BEDSIDE. EMESIS MEDICATED PER EMAR. ON [place] 1830 PT HAS NOT VOIDED DURING HOURS BEING ADMITTED TO MEDICAL FLOOR. PERFORMED BLADDER SCAN, AND STRAIGHT CATHED PER MD TELEPHONE ORDER. INFORMED NOC SHIFT NURSE ABOUT EVENT. RUNNING NS 125ML/HR. BED IN LOWEST POSITION, CALL LIGHT WITHIN REACH.
[2024-08-26] MEDS ORDERED: Phenazopyridine HCl 100 MG Tab PO PRN (20:45)
[2024-08-26] MEDS ORDERED: Heparin Sodium,Porcine 5,000 UNIT/0.5 ML SDV SC SCH (21:00)
[2024-08-27 03:15] VITALS: BP 158/64
[2024-08-27 05:30] LABS: BASOPHILS ABSOLUTE AUTO 0.07 K/mm3 (0.00-0.23); BASOPHILS PERCENT AUTO 1 % (0-2); EOSINOPHILS ABSOLUTE AUTO 0.13 K/mm3 (0.00-0.68); EOSINOPHILS PERCENT AUTO 1 % (0-6); Hematocrit 36.7 % (33.0-51.0); Hemoglobin 11.9 g/dL (11.5-16.0); IMMATURE GRAN ABSOLUTE AUTO 0.09 K/mm3 (0.00-0.10); IMMATURE GRAN PERCENT AUTO 1 % (0-1); LYMPHOCYTES ABSOLUTE AUTO 2.11 K/mm3 (0.84-5.20); LYMPHOCYTES PERCENT AUTO 14 % (21-46); MONOCYTES ABSOLUTE AUTO 1.32 K/mm3 (0.16-1.47); MONOCYTES PERCENT AUTO 9 % (4-13); Mean Corpuscular HGB 28.2 pg (26.0-34.0); Mean Corpuscular HGB Conc 32.4 g/dL (31.5-36.5); Mean Corpuscular Volume 87 fL (80-100); Mean Platelet Volume 10.5 fL (9.1-12.4); NEUTROPHILS ABSOLUTE AUTO 11.14 K/mm3 (1.96-9.15); NEUTROPHILS PERCENT AUTO 75 % (41-73); Platelet Count 321 K/mm3 (150-400); RDW Coefficient Variation 13.2 % (11.7-14.2); RDW Standard Deviation 41.3 fL (35.1-46.3); Red Blood Cell Count 4.22 M/mm3 (3.80-5.20); White Blood Cell Count 14.86 K/mm3 (4.00-11.30)
[2024-08-27 05:56] LABS: Albumin/Globulin Ratio 0.8 (0.8-1.8); Bilirubin, Total 0.4 mg/dL (0.1-1.0); Bun/Creatinine Ratio 20.4 (12.0-20.0); Calcium, Blood 8.7 mg/dL (8.5-10.1); Creatinine, Blood 1.91 mg/dL (0.40-1.00); Globulin, Blood 3.9 g/dL (2.2-4.0); Potassium, Blood 4.7 mmol/L (3.5-5.5); Total Protein, Blood 6.9 g/dL (6.4-8.2)
[2024-08-27] MEDS ORDERED: Pantoprazole Sodium 40 MG Tab PO SCH (06:00)
[2024-08-27 07:17] VITALS: BP 143/58
[2024-08-27] MEDS ORDERED: Aspirin 81 MG Chew PO SCH (09:00)
[2024-08-27] MEDS ORDERED: Losartan Potassium 50 MG Tab PO SCH (09:00)
[2024-08-27] MEDS ORDERED: AmLODIPine Besylate 5 MG Tab PO SCH (09:00)
[2024-08-27] MEDS ORDERED: OxyCODONE HCL 5 MG TAB PO PRN (10:55)
[2024-08-27] MEDS ORDERED: CefTRIAXone Sodium 1,000 MG in NS 100 ML IV SCH (12:00)
[2024-08-27] MEDS ORDERED: Ampicillin Sod 2,000 MG in NS 100 ML IV SCH (14:15)
[2024-08-27] MEDS ORDERED: OxyCODONE HCL 5 MG TAB PO ONE (14:35)
[2024-08-27 15:36] VITALS: BP 142/51
--- NOTE | 2024-08-27 15:36 | NUR ---
PT DISCHARGED THE PT VERBALIZED UNDERSTANDING OF THE DC INSTRUCTIONS. THE PT WAS TRANSFERED VIA WHEELCHAIR ACCOMPANIED BY THE SEPARATOR OPERATOR TO THE PT ENTRANCE TO MEET HER RIDE
--- NOTE | 2024-08-27 18:00 | NUR ---
SHIFT SUMMARY PATIENT ALERT AND INTERACTIVE. PATIENT CONTINUES TO HAVE L LEG PAIN RADIATING DOWN HER LEG. PATIENT CHANGED TO ORAL PAIN MEDS WITH GOOD RELIEF. MRI CANCELED BECAUSE OF CONSERNS OF ABILITY TO FIT IN CLOSED MRI PER PANTS PRESSER. DR. ABY NOTIFIED. PATIENT CONTINUES TO BE UNABLE TO VOID. CATHETER PLACED WITH GOOD RESULTS. PATIENT ONLY ABLE TO SIT AT BEDSIDE WITH THERAPY TODAY. FAMILY AT BEDSIDE MOST OF THE DAY AND UPDATED ON SITUATION.
[2024-08-27 19:14] VITALS: BP 152/55
[2024-08-27] MEDS ORDERED: Gabapentin 100 MG Cap PO SCH (21:00)
--- NOTE | 2024-08-27 22:46 | NUR ---
SHIFT SUMMARY PT ALERT AND ORIENTED TIMES 4. PT IS ADMITTED FOR UTI.. PT HAS NORMAL SALINE @ 125/HR. PT IS BEDREST,HAS MORPHINE 2MG Q2 SCHEDULED. ALSO OBTAINED ORDER FOR PYRIDIUM BID. PT IS COOPERATIVE WITH CARE, ROOM AIR. CARB CONSTANT DIET, WITH NO BLOOD SUGARS. CALL LIGHT WITHIN REACH, RAILS TIMES 2, BED IN LOW POSITION.
[2024-08-27] MEDS ORDERED: Sennosides 8.6 MG Tab PO SCH (23:40)
[2024-08-27] MEDS ORDERED: Docusate Sodium 100 MG Cap PO SCH (23:40)
[2024-08-28 04:37] VITALS: BP 156/62
[2024-08-28 05:09] LABS: BASOPHILS ABSOLUTE AUTO 0.05 K/mm3 (0.00-0.23); BASOPHILS PERCENT AUTO 0 % (0-2); EOSINOPHILS ABSOLUTE AUTO 0.32 K/mm3 (0.00-0.68); EOSINOPHILS PERCENT AUTO 3 % (0-6); Hematocrit 31.5 % (33.0-51.0); Hemoglobin 10.5 g/dL (11.5-16.0); IMMATURE GRAN ABSOLUTE AUTO 0.04 K/mm3 (0.00-0.10); IMMATURE GRAN PERCENT AUTO 0 % (0-1); LYMPHOCYTES ABSOLUTE AUTO 1.76 K/mm3 (0.84-5.20); LYMPHOCYTES PERCENT AUTO 16 % (21-46); MONOCYTES ABSOLUTE AUTO 0.92 K/mm3 (0.16-1.47); MONOCYTES PERCENT AUTO 8 % (4-13); Mean Corpuscular HGB 29.2 pg (26.0-34.0); Mean Corpuscular HGB Conc 33.3 g/dL (31.5-36.5); Mean Corpuscular Volume 88 fL (80-100); Mean Platelet Volume 10.6 fL (9.1-12.4); NEUTROPHILS ABSOLUTE AUTO 8.25 K/mm3 (1.96-9.15); NEUTROPHILS PERCENT AUTO 73 % (41-73); Platelet Count 251 K/mm3 (150-400); RDW Coefficient Variation 12.9 % (11.7-14.2); RDW Standard Deviation 41.5 fL (35.1-46.3); White Blood Cell Count 11.34 K/mm3 (4.00-11.30)
[2024-08-28 05:34] LABS: Bun/Creatinine Ratio 16.1 (12.0-20.0); Calcium, Blood 8.3 mg/dL (8.5-10.1); Creatinine, Blood 1.92 mg/dL (0.40-1.00); Potassium, Blood 4.3 mmol/L (3.5-5.5)
--- NOTE | 2024-08-28 06:35 | NUR ---
SHIFT SUMMARY PT ALERT AND ORIENTED TIMES 4. PT IS ADMITTED FOR UTI.. PT HAS NORMAL SALINE @ 125/HR. PT HAS NOT HAD BM FOR OVER 72 HOURS. SENNS AND COLACE SCHEDULED. ALSO OBTAINED ORDER FOR GABAPENTIN 100MG BID. PT IS HAVING LEFT HIP PAIN. PT IS COOPERATIVE WITH CARE, ROOM AIR. CARB CONSTANT DIET, WITH NO BLOOD SUGARS. CALL LIGHT WITHIN REACH, RAILS TIMES 2, BED IN LOW POSITION.
[2024-08-28 07:49] VITALS: BP 182/67
[2024-08-28] MEDS ORDERED: AmLODIPine Besylate 5 MG Tab PO ONE (08:55)
[2024-08-28 09:44] VITALS: BP 127/56
[2024-08-28 15:05] VITALS: BP 137/52
--- NOTE | 2024-08-28 19:02 | NUR ---
PT A&Ox4, was admitted with a UTI. Normal saline is infusing @ 125ml/Hr. No bowel movement since 08/25/2024 at night. 11/22 pain in left hip/leg, and lower back, relived by repositioning and orders per EMAR. Is on a carb constant diet, call light in reach, 2x bed rails up, and the bed in the low position.
[2024-08-28 20:11] VITALS: BP 134/61
--- NOTE | 2024-08-28 22:15 | NUR ---
I HAVE OBSERVED AND ASSISTED WITH NURSE STUDENT MEDS/CARE OF PT AND AGREE WITH DOCUMENTATION
[2024-08-29 02:25] VITALS: BP 149/58
--- NOTE | 2024-08-29 04:13 | NUR ---
grocery carrier shift summary Vital signs stable. Patient complaining of pain in left hip, PRN pain medication given per EMAR with good relief. Powerglide IV established this shift. IV antibiotics given for UTI per EMAR. Patient resting quietly with few interruptions. Bedrails up x3 and bed in lowest position for safety. Call light within reach. Will continue to monitor.
[2024-08-29 07:23] VITALS: BP 172/76
[2024-08-29] MEDS ORDERED: AmLODIPine Besylate 5 MG Tab PO SCH (09:00)
[2024-08-29 09:40] LABS: BASOPHILS ABSOLUTE AUTO 0.04 K/mm3 (0.00-0.23); BASOPHILS PERCENT AUTO 0 % (0-2); EOSINOPHILS ABSOLUTE AUTO 0.29 K/mm3 (0.00-0.68); EOSINOPHILS PERCENT AUTO 3 % (0-6); Hemoglobin 10.8 g/dL (11.5-16.0); IMMATURE GRAN ABSOLUTE AUTO 0.04 K/mm3 (0.00-0.10); IMMATURE GRAN PERCENT AUTO 0 % (0-1); LYMPHOCYTES PERCENT AUTO 13 % (21-46); MONOCYTES ABSOLUTE AUTO 0.68 K/mm3 (0.16-1.47); MONOCYTES PERCENT AUTO 6 % (4-13); Mean Corpuscular HGB 28.1 pg (26.0-34.0); Mean Corpuscular HGB Conc 32.7 g/dL (31.5-36.5); Mean Corpuscular Volume 86 fL (80-100); Mean Platelet Volume 10.8 fL (9.1-12.4); NEUTROPHILS ABSOLUTE AUTO 8.72 K/mm3 (1.96-9.15); NEUTROPHILS PERCENT AUTO 77 % (41-73); Platelet Count 255 K/mm3 (150-400); RDW Coefficient Variation 12.5 % (11.7-14.2); RDW Standard Deviation 38.8 fL (35.1-46.3); Red Blood Cell Count 3.84 M/mm3 (3.80-5.20); White Blood Cell Count 11.27 K/mm3 (4.00-11.30)
[2024-08-29 09:57] LABS: Bun/Creatinine Ratio 13.2 (12.0-20.0); Calcium, Blood 8.8 mg/dL (8.5-10.1); Creatinine, Blood 1.89 mg/dL (0.40-1.00); Potassium, Blood 4.4 mmol/L (3.5-5.5)
[2024-08-29 15:20] VITALS: BP 149/60
[2024-08-29] MEDS ORDERED: Glycerin Adult Supp 1 EA PR ONE (16:30)
--- NOTE | 2024-08-29 18:55 | NUR ---
SHIFT SUMMARY Patient is A&Ox4, carb constant diet, and is able to get up with assistance and walker. Had a bowel movement today 08/29/2024. Patient successfully voided without catheter. Prefers to be waken up at night for pain meds when they are available. Patient developed wheezing last night, was given an incentive spirometer and IV fluids infusion stopped.
[2024-08-29 19:27] VITALS: BP 156/64
[2024-08-30] MEDS ORDERED: NS 250 ML IV PRN (01:25)
--- NOTE | 2024-08-30 02:56 | NUR ---
SHIFT SUMMARY NO ACUTE EVENTS DURING THIS SHIFT. PT C/O 5/10 LEFT HIP AND BACK PAIN. PT REPORTS UNABLE TO REST IN BED, AND CONTINUES TO REST IN THE RECLINER, WITH LEGS/FEET ELEVATED. PER PT THIS HELPS WITH THE LEFT HIP PAIN. MEDICATED PER EMAR WITH SCHEDULED NEUROTIN AND PRN 5MG OXYCODONE. PT REPORTS EFFECTIVE. PT IS VOIDING WELL, GOOD OUTPUT>800MLS OF YELLOW COLOR URINE. PT IS 1-PERSON ASSIST TO THE BSC. BED AT THE LOWEST POSITION, CALL LIGHT W/I REACH. PT IS A/O X4, PLEASANT AND COOPERATIVE WITH CARE. PT IS ABLE TO MAKE HER NEEDS KNOWN. PLAN IS FOR [facility]; INSURANCE PENDING.
[2024-08-30 03:19] VITALS: BP 144/55
[2024-08-30 05:44] LABS: BASOPHILS ABSOLUTE AUTO 0.04 K/mm3 (0.00-0.23); BASOPHILS PERCENT AUTO 1 % (0-2); EOSINOPHILS ABSOLUTE AUTO 0.36 K/mm3 (0.00-0.68); EOSINOPHILS PERCENT AUTO 4 % (0-6); Hematocrit 31.7 % (33.0-51.0); Hemoglobin 10.5 g/dL (11.5-16.0); IMMATURE GRAN ABSOLUTE AUTO 0.06 K/mm3 (0.00-0.10); IMMATURE GRAN PERCENT AUTO 1 % (0-1); LYMPHOCYTES ABSOLUTE AUTO 1.51 K/mm3 (0.84-5.20); LYMPHOCYTES PERCENT AUTO 18 % (21-46); MONOCYTES ABSOLUTE AUTO 0.74 K/mm3 (0.16-1.47); MONOCYTES PERCENT AUTO 9 % (4-13); Mean Corpuscular HGB 28.6 pg (26.0-34.0); Mean Corpuscular HGB Conc 33.1 g/dL (31.5-36.5); Mean Corpuscular Volume 86 fL (80-100); Mean Platelet Volume 11.1 fL (9.1-12.4); NEUTROPHILS ABSOLUTE AUTO 5.75 K/mm3 (1.96-9.15); NEUTROPHILS PERCENT AUTO 68 % (41-73); Platelet Count 239 K/mm3 (150-400); RDW Coefficient Variation 12.5 % (11.7-14.2); RDW Standard Deviation 39.3 fL (35.1-46.3); Red Blood Cell Count 3.67 M/mm3 (3.80-5.20); White Blood Cell Count 8.46 K/mm3 (4.00-11.30)
--- NOTE | 2024-08-30 05:44 | NUR ---
NEW T-ORDER RECEIVED FROM THE ON-CALL HOSPITALIST : MIRALAX 17GM 1 PACKET QD PRN. ENTERED TO [employer], SEE EMAR.
[2024-08-30] MEDS ORDERED: Polyethylene Glycol 3350 17 gm PO PRN (05:45)
[2024-08-30 06:09] LABS: Bun/Creatinine Ratio 12.5 (12.0-20.0); Calcium, Blood 8.9 mg/dL (8.5-10.1); Creatinine, Blood 1.92 mg/dL (0.40-1.00); Potassium, Blood 4.1 mmol/L (3.5-5.5)
[2024-08-30 07:33] VITALS: BP 164/81
--- NOTE | 2024-08-30 08:49 | NUR ---
pt sitting up in chair, a/ox4, pleasant and cooperative with care, follows commands well, reports pain in left leg, will medicate when time allows, lungs are clear in upper brown, exp wheeze in mid lobe and bases, on r/a, no cough noted or reported, hrr, 2+ edema noted to b/l le, ppp+1, cap refill <3 sec, vs stable, afebrile, piv to lac and power glide to oscar, sites are clear and patent, btx4, states she's been constipated, has bowel care ordered, and offered prune juice, she may take later if no bm this am, voids without diff, skin c/w/d, states she can bear weight but can't move her legs to ambulate, peterson, call light in reach.
[2024-08-30 15:42] VITALS: BP 159/61
--- NOTE | 2024-08-30 18:40 | NUR ---
pt up to chair most of the day, did have a bm today, she is painful in her left leg but is better after PT worked with her, no acute changes this shift, call light in reach.
[2024-08-30 19:25] VITALS: BP 149/66
[2024-08-31 04:31] VITALS: BP 178/84
--- NOTE | 2024-08-31 06:49 | NUR ---
SHIFT SUMMARY PT ALERT AND ORIENTED TIMES 4. PT IS ADMITTED FOR UTI.. PT HAS SLEEPING IN RECLINER AND APPEARS COMFORTABLE. . PT HAD BM EARLIER IN THE SHIFT. PT HAD LUMBAR MRI DURING DAY SHIFT. PT ONLY REQUESTED PAIN MEDICATION TWICE ON SHIFT. PT APPEARS TO BE STAYING HYDRATED AND DRINKING WATER. PT IS COOPERATIVE WITH CARE, ROOM AIR. CARB CONSTANT DIET, WITH NO BLOOD SUGARS. CALL LIGHT WITHIN REACH, RAILS TIMES 2, BED IN LOW POSITION.
[2024-08-31 07:32] VITALS: BP 147/79
[2024-08-31 08:20] LABS: BASOPHILS ABSOLUTE AUTO 0.06 K/mm3 (0.00-0.23); BASOPHILS PERCENT AUTO 1 % (0-2); EOSINOPHILS ABSOLUTE AUTO 0.29 K/mm3 (0.00-0.68); EOSINOPHILS PERCENT AUTO 3 % (0-6); Hematocrit 32.7 % (33.0-51.0); Hemoglobin 11.1 g/dL (11.5-16.0); IMMATURE GRAN ABSOLUTE AUTO 0.05 K/mm3 (0.00-0.10); IMMATURE GRAN PERCENT AUTO 1 % (0-1); LYMPHOCYTES ABSOLUTE AUTO 1.35 K/mm3 (0.84-5.20); LYMPHOCYTES PERCENT AUTO 15 % (21-46); MONOCYTES PERCENT AUTO 9 % (4-13); Mean Corpuscular HGB 29.1 pg (26.0-34.0); Mean Corpuscular HGB Conc 33.9 g/dL (31.5-36.5); Mean Corpuscular Volume 86 fL (80-100); Mean Platelet Volume 10.7 fL (9.1-12.4); NEUTROPHILS ABSOLUTE AUTO 6.32 K/mm3 (1.96-9.15); NEUTROPHILS PERCENT AUTO 71 % (41-73); Platelet Count 273 K/mm3 (150-400); RDW Coefficient Variation 12.7 % (11.7-14.2); RDW Standard Deviation 39.4 fL (35.1-46.3); Red Blood Cell Count 3.81 M/mm3 (3.80-5.20); White Blood Cell Count 8.87 K/mm3 (4.00-11.30)
[2024-08-31 08:43] LABS: Bun/Creatinine Ratio 12.8 (12.0-20.0); Creatinine, Blood 2.03 mg/dL (0.40-1.00); Potassium, Blood 4.2 mmol/L (3.5-5.5)
[2024-08-31 15:33] VITALS: BP 152/73
[2024-08-31] MEDS ORDERED: GABA100 PO (16:08)
[2024-08-31] MEDS ORDERED: AMOX500 PO (16:08)
[2024-08-31] MEDS ORDERED: OXYC5 PO (16:08)
--- NOTE | 2024-08-31 18:35 | NUR ---
EXPECTED DISCHARGE TO [facility]. RIDE ARRANGED FOR 1729. REPORT CALLED TO MAGDALENO MCGEE RN. PT INSTRUCTED ON DISCHARGE INSTRUCTIONS. AWAITING TRANSPORT.
== END 2024-08-31 18:45 | DRG 690 ==
LOC: ER 09:09 → ERHOLD 09:10 → MEDS 16:15
PROVIDERS: Student in an Organized Health Care Education/Training Program; ADMIT Internal Medicine
DX: N12 Tubulo-interstitial nephritis, not specified as acute or chronic (principal); B95.2 Enterococcus as the cause of diseases classified elsewhere; M54.50 Low back pain, unspecified; R33.9 Retention of urine, unspecified; I25.10 Atherosclerotic heart disease of native coronary artery without angina pectoris; I12.9 Hypertensive chronic kidney disease with stage 1 through stage 4 chronic kidney disease, or unspecified chronic kidney disease; E11.22 Type 2 diabetes mellitus with diabetic chronic kidney disease; E78.5 Hyperlipidemia, unspecified; N18.4 Chronic kidney disease, stage 4 (severe); Z95.5 Presence of coronary angioplasty implant and graft; Z79.82 Long term (current) use of aspirin; Z88.8 Allergy status to other drugs, medicaments and biological substances; Z79.02 Long term (current) use of antithrombotics/antiplatelets
CPT/HCPCS: 36415; 51701; 72148; 73502; 74176; 80048; 80053; 81001; 83605; 83690; 85025; 85651; 86140; 87040; 87077; 87086; 87186; 93005; 93010; 96365-59; 96366; 96366-59; 96375; 96375-59; 96376; 96376-59; 97110; 97116; 97161; 97530; 99285-25; A9270; G0378; J0290; J0696; J2270; J2405; J7030; J7050

== ENCOUNTER 2024-09-07 17:19 | Inpatient (IN) | payer OTHER ==
[~2024-09-07 17:19] MED LIST changes: +AMLO5 PO; +AMOX500 PO; +CALCIUM-MAGNES1 EA11 PO; +GABA100 PO; +LOSARTAN POTAS100 M1 PO; +OXYC5 PO; +VITAMIN B122500 MC1 PO; +VITAMIN D310 MC5; +VITAMIN D5000 UNIT PO
[2024-09-07] MEDS ORDERED: Lactated Ringer's 1,000 ML IV ONE (17:45)
[2024-09-07 18:31] LABS: Albumin/Globulin Ratio 0.7 (0.8-1.8); Bilirubin, Total 0.5 mg/dL (0.1-1.0); Bun/Creatinine Ratio 13.4 (12.0-20.0); Calcium, Blood 9.2 mg/dL (8.5-10.1); Creatinine, Blood 2.09 mg/dL (0.40-1.00); Globulin, Blood 4.3 g/dL (2.2-4.0); Total Protein, Blood 7.3 g/dL (6.4-8.2)
[2024-09-07 18:44] LABS: Influenza A, PCR NEGATIVE (NEGATIVE); Influenza B, PCR NEGATIVE (NEGATIVE); Resp Syncytial Virus, PCR NEGATIVE (NEGATIVE); SARS-Cov-2 (COVID-19) PCR, MMC NEGATIVE (NEGATIVE)
[2024-09-07 19:28] LABS: BASOPHILS ABSOLUTE AUTO 0.04 K/mm3 (0.00-0.23); BASOPHILS PERCENT AUTO 0 % (0-2); EOSINOPHILS PERCENT AUTO 0 % (0-6); Hematocrit 36.1 % (33.0-51.0); Hemoglobin 12.1 g/dL (11.5-16.0); IMMATURE GRAN ABSOLUTE AUTO 0.09 K/mm3 (0.00-0.10); IMMATURE GRAN PERCENT AUTO 1 % (0-1); LYMPHOCYTES ABSOLUTE AUTO 0.53 K/mm3 (0.84-5.20); LYMPHOCYTES PERCENT AUTO 3 % (21-46); MONOCYTES ABSOLUTE AUTO 1.17 K/mm3 (0.16-1.47); MONOCYTES PERCENT AUTO 6 % (4-13); Mean Corpuscular HGB 28.2 pg (26.0-34.0); Mean Corpuscular HGB Conc 33.5 g/dL (31.5-36.5); Mean Corpuscular Volume 84 fL (80-100); Mean Platelet Volume 10.4 fL (9.1-12.4); NEUTROPHILS ABSOLUTE AUTO 17.93 K/mm3 (1.96-9.15); NEUTROPHILS PERCENT AUTO 91 % (41-73); Platelet Count 340 K/mm3 (150-400); RDW Coefficient Variation 12.4 % (11.7-14.2); RDW Standard Deviation 37.1 fL (35.1-46.3); Red Blood Cell Count 4.29 M/mm3 (3.80-5.20); White Blood Cell Count 19.76 K/mm3 (4.00-11.30)
[2024-09-07 20:43] LABS: Source, Urine Clean Catch
[2024-09-07 20:45] LABS: Bilirubin, Urine Neg (Neg); Blood, Urine 2+ (Neg); Glucose Qualitative, Urine 1+ (Neg); Ketones, Urine Neg (Neg); Leukocyte Esterase, Urine Neg (Neg); Nitrite, Urine Neg (Neg); Protein, Urine 3+ (Neg); Urobilinogen, Urine NORM (Normal)
[2024-09-07 20:46] LABS: Appearance, Urine Clear (Clear); Color, Urine Yellow (P-Yellow)
[2024-09-07 20:54] LABS: Bacteria Not Seen /hpf; Red Blood Cells, Urine 0-2 /hpf (0-2); Squamous Epithelial Cells Rare /hpf (Few); White Blood Cells, Urine 0-2 /hpf (0-5)
[2024-09-07] MEDS ORDERED: Ciprofloxacin 500 MG Tab PO ONE (20:55)
[2024-09-07] MEDS ORDERED: MetroNIDAZOLE 500 MG Tab PO ONE (20:55)
[2024-09-07] MEDS ORDERED: Ondansetron HCl 2 MG / ML 2ML Vial IV PRN (22:20)
[2024-09-07] MEDS ORDERED: OxyCODONE HCL 5 MG TAB PO PRN (22:20)
[2024-09-07] MEDS ORDERED: Acetaminophen 325 MG TABLET PO PRN (22:25)
[2024-09-07] MEDS ORDERED: CefTRIAXone Sodium 2,000 MG in NS 100 ML IV SCH (22:28)
[2024-09-07] MEDS ORDERED: MetroNIDAZOLE 500MG/NS 100 ml 100 ML IV SCH (22:29)
[2024-09-07] MEDS ORDERED: Lactated Ringer's 1,000 ML IV SCH (23:00)
[2024-09-07] MEDS ORDERED: NS 250 ML IV PRN (23:35)
[2024-09-07 23:46] VITALS: BP 141/56
[2024-09-08] MEDS ORDERED: Insulin Regular 100 UNIT/ML 10ML Vial SC SCH
--- NOTE | 2024-09-08 05:05 | NUR ---
SHIFT SUMMARY: Pt is admitted for diverticulitis and is a full code. Is alert and able to make needs known. ADLs have been 1p but did not get out of bed during shift. Pain has been managed with PRN medications. Jordan reports sinus tach in the 100s. Folly in place and draining clear yellow urine.
[2024-09-08 05:25] VITALS: BP 176/63
[2024-09-08] MEDS ORDERED: Pantoprazole Sodium 40 MG Tab PO SCH (06:00)
[2024-09-08 07:04] VITALS: BP 147/60
[2024-09-08 07:05] LABS: BASOPHILS ABSOLUTE AUTO 0.05 K/mm3 (0.00-0.23); BASOPHILS PERCENT AUTO 0 % (0-2); EOSINOPHILS ABSOLUTE AUTO 0.01 K/mm3 (0.00-0.68); EOSINOPHILS PERCENT AUTO 0 % (0-6); Hematocrit 32.3 % (33.0-51.0); Hemoglobin 10.7 g/dL (11.5-16.0); IMMATURE GRAN ABSOLUTE AUTO 0.15 K/mm3 (0.00-0.10); IMMATURE GRAN PERCENT AUTO 1 % (0-1); LYMPHOCYTES ABSOLUTE AUTO 0.92 K/mm3 (0.84-5.20); LYMPHOCYTES PERCENT AUTO 4 % (21-46); MONOCYTES ABSOLUTE AUTO 2.02 K/mm3 (0.16-1.47); MONOCYTES PERCENT AUTO 10 % (4-13); Mean Corpuscular HGB 28.7 pg (26.0-34.0); Mean Corpuscular HGB Conc 33.1 g/dL (31.5-36.5); Mean Corpuscular Volume 87 fL (80-100); Mean Platelet Volume 10.7 fL (9.1-12.4); NEUTROPHILS ABSOLUTE AUTO 17.98 K/mm3 (1.96-9.15); NEUTROPHILS PERCENT AUTO 85 % (41-73); Platelet Count 277 K/mm3 (150-400); RDW Coefficient Variation 12.6 % (11.7-14.2); RDW Standard Deviation 39.3 fL (35.1-46.3); Red Blood Cell Count 3.73 M/mm3 (3.80-5.20); White Blood Cell Count 21.13 K/mm3 (4.00-11.30)
[2024-09-08 07:56] LABS: Albumin, Blood 2.4 g/dL (3.4-5.0); Albumin/Globulin Ratio 0.6 (0.8-1.8); Bilirubin, Total 0.5 mg/dL (0.1-1.0); Bun/Creatinine Ratio 12.7 (12.0-20.0); Creatinine, Blood 2.21 mg/dL (0.40-1.00); Globulin, Blood 3.9 g/dL (2.2-4.0); Magnesium, Blood 1.9 mg/dL (1.6-2.4); Potassium, Blood 3.7 mmol/L (3.5-5.5); Total Protein, Blood 6.3 g/dL (6.4-8.2)
[2024-09-08] MEDS ORDERED: Gabapentin 100 MG Cap PO SCH (09:00)
[2024-09-08] MEDS ORDERED: Cholecalciferol 1000 Unit Tablet (=25MCG) PO SCH (09:00)
[2024-09-08] MEDS ORDERED: AmLODIPine Besylate 5 MG Tab PO SCH (09:00)
[2024-09-08] MEDS ORDERED: Losartan Potassium 50 MG Tab PO SCH (09:00)
[2024-09-08] MEDS ORDERED: Enoxaparin 30 MG/0.3 ML SYR SC SCH (09:00)
[2024-09-08] MEDS ORDERED: Lactobacil 2-S.Thermo-Bifido 1 1 Cap PO SCH (09:00)
[2024-09-08] MEDS ORDERED: Aspirin 81 MG Chew PO SCH (09:00)
[2024-09-08 14:25] VITALS: BP 150/64
[2024-09-08] MEDS ORDERED: HydrALAZINE HCl 20 MG / ML 1ML Vial IV PRN (16:35)
[2024-09-08] MEDS ORDERED: FentaNYL Citrate 50 MCG/ML 2 ML Injection IV PRN (16:40)
--- NOTE | 2024-09-08 17:17 | NUR ---
NO ACUTE CHANGES THIS SHIFT. ALERT AND ORIENTED X4, NPO EXCEPT SIPS AND CHIPS, PT CONTINUES TO ENDORSE 8/10 PAIN IN ABDOMEN. TREATING PER EMAR. PT IS INDEPENDENT AT BASELINE. ABLE TO REPOSITION SELF IN BED, CALLS APPROPRIATELY.
[2024-09-08 19:37] VITALS: BP 154/56
[2024-09-09] VITALS (7 sets, daily range): BP systolic 121–155; BP diastolic 45–65
--- NOTE | 2024-09-09 04:27 | NUR ---
SHIFT SUMMARY: Pt is admitted for diverticulitis and is a full code. Is alert and able to make needs known. ADLs have been 1p but did not get out of bed during shift. Pain has been managed with PRN medications. Johny reports sinus tach in the 80s. Folly in place and draining clear yellow urine. ICU charge placed power glide to left upper arm this shift.
[2024-09-09 06:55] LABS: BASOPHILS ABSOLUTE AUTO 0.06 K/mm3 (0.00-0.23); BASOPHILS PERCENT AUTO 0 % (0-2); EOSINOPHILS ABSOLUTE AUTO 0.03 K/mm3 (0.00-0.68); EOSINOPHILS PERCENT AUTO 0 % (0-6); Hematocrit 28.2 % (33.0-51.0); Hemoglobin 9.4 g/dL (11.5-16.0); IMMATURE GRAN ABSOLUTE AUTO 0.15 K/mm3 (0.00-0.10); IMMATURE GRAN PERCENT AUTO 1 % (0-1); LYMPHOCYTES PERCENT AUTO 8 % (21-46); MONOCYTES ABSOLUTE AUTO 1.16 K/mm3 (0.16-1.47); MONOCYTES PERCENT AUTO 7 % (4-13); Mean Corpuscular HGB 28.8 pg (26.0-34.0); Mean Corpuscular HGB Conc 33.3 g/dL (31.5-36.5); Mean Corpuscular Volume 87 fL (80-100); Mean Platelet Volume 11.2 fL (9.1-12.4); NEUTROPHILS ABSOLUTE AUTO 14.28 K/mm3 (1.96-9.15); NEUTROPHILS PERCENT AUTO 84 % (41-73); Platelet Count 251 K/mm3 (150-400); RDW Coefficient Variation 12.7 % (11.7-14.2); RDW Standard Deviation 40.1 fL (35.1-46.3); Red Blood Cell Count 3.26 M/mm3 (3.80-5.20); White Blood Cell Count 17.08 K/mm3 (4.00-11.30)
[2024-09-09 07:15] LABS: Bun/Creatinine Ratio 12.9 (12.0-20.0); Calcium, Blood 8.5 mg/dL (8.5-10.1); Creatinine, Blood 2.24 mg/dL (0.40-1.00); Potassium, Blood 3.9 mmol/L (3.5-5.5)
[2024-09-09] MEDS ORDERED: Lactated Ringer's 1,000 ML IV SCH (11:10)
--- NOTE | 2024-09-09 17:18 | NUR ---
SHIFT SUMMARY: PATIENT A/OX3-4, [facility], PLEASANT AND COOPERATIVE c CARE. PATIENT DENIES CP/PRESSURE, SOB, N/V AND DIZZINESS. PATIENT ON TELE, SR HR IN THE HIGH 80'S BPM. PATIENT MEDICATED FOR PAIN TO LOWER BACK/ABDOMEN AND BLE'S PER EMAR c GOOD EFFECT. PATIENT ON CL DIET, TOLERATING WELL. ACCU CHECK DC'D PER ORDER. PATIENT WORK c PT TODAY, RECOMMENDING SNF. PATIENT EXPRESSESS TO ERIC-PT AND THIS RN THAT SHE DOES NOT WANT TO GO BACK TO [facility] PER PATIENT "I WAS AT [facility] BEFORE I CAME IN TO THE HOSPITAL, BUT THEY ARE UNDER STAFF AND THE PHYSICAL THERAPY ONLY WORK WITH ME TWICE. I DON'T HAVE A GOOD EXPERIENCE. I WOULD RATHER GO HOME." PATIENT EDUCATED RISK/BENIFITS OF HAVING SNF PLACEMENT FOR SHORT TERM THERAPY. PATIENT VERBALIZED UNDERSTANDING, BUT CONTINUE TO DECLINED. JACKIEEN SAT UP IN THE RECLINER CHAIR c BLE'S ELEVATED FOR ABOUT 6 HRS. PATIENT RECEIVED IV ABX/SCHEDULED MEDS PER EMAR. PATIENT HAS POWERGLIDE TO ERWIN INFUSING LR AT 100 MLS/HR. VITAL SIGNS REVIEWED. CALL LIGHT IN REACH.
--- NOTE | 2024-09-09 18:09 | NUR ---
ADDITIONAL NOTE: PATIENT HAS SEAY FOR ACUTE RETENTION, PATENT DRAINING SANDRA COLOR URINE TO GRAVITY. PATIENT HAS HAD NO BM THIS SHIFT.
[2024-09-10 03:59] VITALS: BP 164/51
[2024-09-10 07:05] LABS: BASOPHILS ABSOLUTE AUTO 0.06 K/mm3 (0.00-0.23); BASOPHILS PERCENT AUTO 1 % (0-2); EOSINOPHILS ABSOLUTE AUTO 0.18 K/mm3 (0.00-0.68); EOSINOPHILS PERCENT AUTO 2 % (0-6); Hematocrit 29.4 % (33.0-51.0); Hemoglobin 9.8 g/dL (11.5-16.0); IMMATURE GRAN ABSOLUTE AUTO 0.07 K/mm3 (0.00-0.10); IMMATURE GRAN PERCENT AUTO 1 % (0-1); LYMPHOCYTES ABSOLUTE AUTO 1.34 K/mm3 (0.84-5.20); LYMPHOCYTES PERCENT AUTO 11 % (21-46); MONOCYTES ABSOLUTE AUTO 0.73 K/mm3 (0.16-1.47); MONOCYTES PERCENT AUTO 6 % (4-13); Mean Corpuscular HGB 28.3 pg (26.0-34.0); Mean Corpuscular HGB Conc 33.3 g/dL (31.5-36.5); Mean Corpuscular Volume 85 fL (80-100); Mean Platelet Volume 10.9 fL (9.1-12.4); NEUTROPHILS ABSOLUTE AUTO 9.94 K/mm3 (1.96-9.15); NEUTROPHILS PERCENT AUTO 81 % (41-73); Platelet Count 284 K/mm3 (150-400); RDW Coefficient Variation 12.6 % (11.7-14.2); RDW Standard Deviation 38.7 fL (35.1-46.3); Red Blood Cell Count 3.46 M/mm3 (3.80-5.20); White Blood Cell Count 12.32 K/mm3 (4.00-11.30)
[2024-09-10 07:22] LABS: Bun/Creatinine Ratio 13.6 (12.0-20.0); Calcium, Blood 8.6 mg/dL (8.5-10.1); Creatinine, Blood 1.91 mg/dL (0.40-1.00); Potassium, Blood 3.7 mmol/L (3.5-5.5)
[2024-09-10 08:19] VITALS: BP 148/57
[2024-09-10 12:08] VITALS: BP 147/68
--- NOTE | 2024-09-10 16:13 | NUR ---
SHIFT SUMMARY PT WORKED WITH PHYSICAL THERAPY TODAY. UP TO CHAIR AFTER BREAKFAST. PT IS NOT WANTING TO RETURN TO [facility] FOR REHAB AND SEEMS MOTIVATED TO START WALKING MORE. PT AMBULATED TO THE BATHROOM FOR TOILETING/SHOWER WITH 1P ASSIST. DIET ADVANCED TO FULL LIQUID. PT TOLERATED THIS WELL FOR LUNCHTIME. PT REMAINS ON LR AT 100ML/HR. SEAY REMOVED AT 1600 TODAY. MEDICATED FOR PAIN TWICE THIS SHIFT. PT CURRENTLY UP IN CHAIR. CALL LIGHT IN REACH. VS REVIEWED. CALL LIGHT IN REACH.
[2024-09-10 16:19] VITALS: BP 161/65
[2024-09-10 19:35] VITALS: BP 147/55
[2024-09-10 23:36] VITALS: BP 165/59
[2024-09-11] MEDS ORDERED: Calcium Carbonate 500 MG Tab Chew PO PRN (00:50)
[2024-09-11 04:39] VITALS: BP 170/59
--- NOTE | 2024-09-11 05:31 | NUR ---
Shift Summary No acute changes. Pt 1 assist to BSC. Full liquid diet tolerated well though she does report recent diahrrea. Medicated from chronic back pain per emar. She did c/o of heartburn, called hospitalist who ordered PRN tums which resolved the problem. AOx4, cooperative with care, slept through some of the night.
[2024-09-11 07:27] VITALS: BP 149/78
[2024-09-11 08:51] LABS: BASOPHILS ABSOLUTE AUTO 0.06 K/mm3 (0.00-0.23); BASOPHILS PERCENT AUTO 1 % (0-2); EOSINOPHILS ABSOLUTE AUTO 0.25 K/mm3 (0.00-0.68); EOSINOPHILS PERCENT AUTO 3 % (0-6); IMMATURE GRAN ABSOLUTE AUTO 0.07 K/mm3 (0.00-0.10); IMMATURE GRAN PERCENT AUTO 1 % (0-1); LYMPHOCYTES ABSOLUTE AUTO 1.97 K/mm3 (0.84-5.20); LYMPHOCYTES PERCENT AUTO 21 % (21-46); MONOCYTES ABSOLUTE AUTO 0.66 K/mm3 (0.16-1.47); MONOCYTES PERCENT AUTO 7 % (4-13); Mean Corpuscular HGB 28.9 pg (26.0-34.0); Mean Corpuscular HGB Conc 34.4 g/dL (31.5-36.5); Mean Corpuscular Volume 84 fL (80-100); Mean Platelet Volume 9.9 fL (9.1-12.4); NEUTROPHILS ABSOLUTE AUTO 6.31 K/mm3 (1.96-9.15); NEUTROPHILS PERCENT AUTO 68 % (41-73); Platelet Count 365 K/mm3 (150-400); RDW Coefficient Variation 12.6 % (11.7-14.2); RDW Standard Deviation 38.3 fL (35.1-46.3); Red Blood Cell Count 3.81 M/mm3 (3.80-5.20); White Blood Cell Count 9.32 K/mm3 (4.00-11.30)
[2024-09-11 09:16] LABS: Calcium, Blood 9.1 mg/dL (8.5-10.1); Creatinine, Blood 1.66 mg/dL (0.40-1.00); Potassium, Blood 3.4 mmol/L (3.5-5.5)
[2024-09-11] MEDS ORDERED: Loperamide HCl 2 MG Cap PO PRN (10:10)
[2024-09-11 16:04] VITALS: BP 157/63
--- NOTE | 2024-09-11 18:26 | NUR ---
SHIFT SUMMARY TELE DC'D, SINUS RYTHM. DIET ADVANCED TO LOW FIBER. DC'D LR IV, POWER GLIDE SALINE LOCKED. 2 EPISODES OF DIARRHEA, LOPERAMIDEORDERED. 1 EPISODE OF EMESIS. ZOFRAN GIVEN. REMAINS A&O X3-4. PLAN IS TO DC TO [facility] TOMORROW
[2024-09-11 20:24] VITALS: BP 154/61
[2024-09-12 03:47] VITALS: BP 165/59
--- NOTE | 2024-09-12 05:47 | NUR ---
Shift Summary Pt had one more episode of diahrrea which was mostly liquid, gave 2nd dose of immodium. Medicated for chronic back pain PRN. She was awake most of the night, however uncomfortable d/t sciatic nerve pain. She is AOx4, cooperative with care, 1 assist to the [facility]SC.
[2024-09-12 07:15] VITALS: BP 163/75
[2024-09-12 08:10] LABS: BASOPHILS ABSOLUTE AUTO 0.06 K/mm3 (0.00-0.23); BASOPHILS PERCENT AUTO 1 % (0-2); EOSINOPHILS ABSOLUTE AUTO 0.14 K/mm3 (0.00-0.68); EOSINOPHILS PERCENT AUTO 2 % (0-6); Hematocrit 31.2 % (33.0-51.0); Hemoglobin 10.3 g/dL (11.5-16.0); IMMATURE GRAN ABSOLUTE AUTO 0.09 K/mm3 (0.00-0.10); IMMATURE GRAN PERCENT AUTO 1 % (0-1); LYMPHOCYTES ABSOLUTE AUTO 0.99 K/mm3 (0.84-5.20); LYMPHOCYTES PERCENT AUTO 14 % (21-46); MONOCYTES ABSOLUTE AUTO 0.65 K/mm3 (0.16-1.47); MONOCYTES PERCENT AUTO 9 % (4-13); Mean Corpuscular HGB 28.1 pg (26.0-34.0); Mean Corpuscular Volume 85 fL (80-100); Mean Platelet Volume 10.3 fL (9.1-12.4); NEUTROPHILS PERCENT AUTO 73 % (41-73); Platelet Count 358 K/mm3 (150-400); RDW Coefficient Variation 12.6 % (11.7-14.2); RDW Standard Deviation 39.2 fL (35.1-46.3); Red Blood Cell Count 3.66 M/mm3 (3.80-5.20); White Blood Cell Count 7.13 K/mm3 (4.00-11.30)
[2024-09-12 08:32] LABS: Bun/Creatinine Ratio 10.2 (12.0-20.0); Calcium, Blood 9.2 mg/dL (8.5-10.1); Creatinine, Blood 1.66 mg/dL (0.40-1.00); Potassium, Blood 3.7 mmol/L (3.5-5.5)
[2024-09-12 11:32] VITALS: BP 143/66
--- NOTE | 2024-09-12 14:15 | NUR ---
DISCHARGE PT AOX4, COOPERATIVE, ABLE TO MAKE NEEDS KNOWN. PT IS 1 PERSON ASSIST TO COMMODE. ON ROOM AIR. POWERGLIDE DC'D BY THIS RN WITHOUT INJURY. PT TOOK BELONGINGS WITH HER. TRANSPORT TOOK PAPERWORK. THIS RN CALLED [facility] TO GIVE REPORT, TALKED TO "PAUL".
== END 2024-09-12 14:17 | DRG 872 ==
LOC: ER 17:19 → MEDS 23:11
PROVIDERS: Family Medicine; Internal Medicine; Student in an Organized Health Care Education/Training Program; ADMIT Student in an Organized Health Care Education/Training Program
DX: A41.9 Sepsis, unspecified organism (principal); K57.32 Diverticulitis of large intestine without perforation or abscess without bleeding; N17.9 Acute kidney failure, unspecified; E87.1 Hypo-osmolality and hyponatremia; N18.4 Chronic kidney disease, stage 4 (severe); Z68.41 Body mass index [BMI] 40.0-44.9, adult; I25.10 Atherosclerotic heart disease of native coronary artery without angina pectoris; R33.9 Retention of urine, unspecified; E11.22 Type 2 diabetes mellitus with diabetic chronic kidney disease; I12.9 Hypertensive chronic kidney disease with stage 1 through stage 4 chronic kidney disease, or unspecified chronic kidney disease; E11.65 Type 2 diabetes mellitus with hyperglycemia; E66.9 Obesity, unspecified; D63.1 Anemia in chronic kidney disease; Z95.5 Presence of coronary angioplasty implant and graft; Z88.8 Allergy status to other drugs, medicaments and biological substances; Z79.82 Long term (current) use of aspirin; Z85.3 Personal history of malignant neoplasm of breast; Z92.21 Personal history of antineoplastic chemotherapy; Z92.3 Personal history of irradiation; Z87.440 Personal history of urinary (tract) infections; Z90.12 Acquired absence of left breast and nipple
CPT/HCPCS: 0241U; 36415; 51702; 51798; 71045; 74176; 80048; 80053; 81001; 82947; 83605; 83690; 83735; 83880; 85025; 87040; 93005; 93010; 97110; 97116; 97161; 97165; 97530; 97535; 99285-25; A9270; C1751; J0360; J0696; J1650; J1815; J2405; J3010; J7050; J7120

== ENCOUNTER → 2024-09-21 | Outpatient (CLI) | payer OTHER | LOC: LAB 19:25 → LAB SHORT 19:25 | DX: R30.0 Dysuria (principal) | CPT/HCPCS: 87086 ==